=== PATIENT | male | born 1955 | race Caucasian/White ===

== ENCOUNTER → 2021-07-19 | Outpatient (CLI) | payer MEDICARE, BC | END | disposition home or self-care (01) | LOC: LAB SHORT 11:25 → LAB 11:25 | DX: D22.4 Melanocytic nevi of scalp and neck (principal); L82.1 Other seborrheic keratosis; D48.5 Neoplasm of uncertain behavior of skin | CPT/HCPCS: 88305 ==

== ENCOUNTER 2022-10-02 08:56 | Day surgery (SDC) | payer MEDICARE, BC | END 2022-10-02 11:43 | disposition home or self-care (01) | LOC: ORSCSDS 08:56 | PROC: 0DB58ZX Excision of Esophagus, Via Natural or Artificial Opening Endoscopic, Diagnostic (ICD-10-PCS; principal; 2022-10-02) | PROC: 0DBH8ZX Excision of Cecum, Via Natural or Artificial Opening Endoscopic, Diagnostic (ICD-10-PCS; principal; 2022-10-02) | PROC: 0DBN8ZX Excision of Sigmoid Colon, Via Natural or Artificial Opening Endoscopic, Diagnostic (ICD-10-PCS; principal; 2022-10-02) | PROC: 0DBM8ZX Excision of Descending Colon, Via Natural or Artificial Opening Endoscopic, Diagnostic (ICD-10-PCS; principal; 2022-10-02) | DX: K21.9 Gastro-esophageal reflux disease without esophagitis (principal); Z12.11 Encounter for screening for malignant neoplasm of colon; K22.70 Barrett's esophagus without dysplasia; D12.0 Benign neoplasm of cecum; K63.5 Polyp of colon; D12.4 Benign neoplasm of descending colon; K57.30 Diverticulosis of large intestine without perforation or abscess without bleeding; K64.8 Other hemorrhoids; K44.9 Diaphragmatic hernia without obstruction or gangrene; Z87.891 Personal history of nicotine dependence; Z79.899 Other long term (current) drug therapy ==

== ENCOUNTER 2022-10-20 18:06 | Emergency (ER) | payer MEDICARE, BC ==
[~2022-10-20] VITALS: Ht 177.8 cm; Wt 81.7 kg
[~2022-10-20 18:06] MED LIST: VALTREX50013 PO
[2022-10-20 18:27] VITALS: BP 137/103
[2022-10-20] MEDS ORDERED: TRAM50 PO ×2 (19:10)
[2022-10-20] MEDS ORDERED: ROSUVASTATIN CAL5 MG PO (19:11)
== END 2022-10-20 19:41 | disposition home or self-care (01) ==
LOC: ER 18:06
DX: M70.72 Other bursitis of hip, left hip (principal); Z79.899 Other long term (current) drug therapy
CPT/HCPCS: 73502; 96372; 99283-25; A9270; J1885